=== PATIENT | male | born 1935 | race Caucasian/White ===

== ENCOUNTER 2019-06-04 07:06 | Inpatient (IN) ==
[2019-06-04] MEDS ORDERED: Sodium Chloride 0.9% 1,000 ML PRIMARY IV ONE (07:17)
[2019-06-04] MEDS ORDERED: methylPREDNISolone 125 MG/2 ML VIAL IVP ONE (07:17)
[2019-06-04 07:54] LABS: BASOPHILS # (AUTO) 0.03 10*3/UL; BASOPHILS % (AUTO) 0.2 % (0-1); EOSINOPHILS # (AUTO) 0.12 10*3/UL; EOSINOPHILS % (AUTO) 0.7 % (0-8); Hematocrit [HCT] 32.4 % (42.0-52.0); Hemoglobin [HGB] 10.1 g/dL (14.0-18.0); LYMPHOCYTES # (AUTO) 1.22 10*3/uL; MEAN CORPUSCULAR HGB CONC 31.2 g/dL (33-37); MEAN CORPUSCULAR VOLUME 88.3 FL (80-90); MEAN PLATELET VOLUME 8.3 FL (7.4-12.2); MONOCYTES # (AUTO) 0.88 10*3/UL (0.3-0.8); MONOCYTES % (AUTO) 5.1 % (5-15); NEUTROPHILS # (AUTO) 14.99 10*3/UL; NEUTROPHILS % (AUTO) 86.7 % (50-80); RED BLOOD COUNT 3.67 10^6/uL (4.70-6.10)
[2019-06-04 07:59] LABS: PLATELET MORPHOLOGY COMMENT NORMAL MORPHOLOGY (NORM); RBC MORPHOLOGY COMMENT NORMAL MORPHOLOGY (NORM); WBC MORPHOLOGY COMMENT NORMAL MORPHOLOGY (NORM)
[2019-06-04 08:06] LABS: BUN/CREATININE RATIO 18.33 (6-20); SERUM ALBUMIN 2.9 g/dL (3.5-4.8)
[2019-06-04] MEDS ORDERED: cefTRIAXone Inj 2 GM in Sodium Chloride 0.9% 100 ML IV ONE (08:20)
[2019-06-04 08:23] LABS: VENOUS PH 7.44 (7.32-7.42)
[2019-06-04] MEDS ORDERED: DICLOFENAC SODIUM TOPICAL PRN (11:30)
[2019-06-04] MEDS ORDERED: LIDOCAINE W/ SODIUM BICARB 0.5 ML SYR SUBD PRN (11:30)
[2019-06-04] MEDS ORDERED: LIDOCAINE HCL 2 % 10 ML JELLY URO-JECT TOPICAL PRN (11:32)
[2019-06-04] MEDS ORDERED: Influenza 19-20 Vaccine (6mo+) 60 MCG/0.5 ML SYRINGE IM ONE (12:19)
[2019-06-04] MEDS: IPRATROPIUM/ALBUTEROL SULFATE 3 ML NEB NEB PRN ×2 (13:14→19:14)
[2019-06-04] MEDS: methylPREDNISolone 40 MG/1 ML VIAL IVP SCH ×3 (13:54→23:40)
[2019-06-04] MEDS: Cefepime Inj 2 GM in Sodium Chloride 0.9% 100 ML IV SCH ×2 (13:54→19:18)
[2019-06-04] MEDS: Beta Carot W/Vit E,C,Min Tab 1 TAB TAB PO SCH (14:00)
[2019-06-04] MEDS: ASPIRIN 81 MG (BABY) CHEWABLE TABLET PO SCH (14:01)
[2019-06-04] MEDS: traMADol 50 MG TABLET PO SCH ×4 (14:01→23:46)
[2019-06-04] MEDS: ENOXAPARIN SODIUM 40 MG/0.4 ML SYRINGE SUBCUT SCH (14:02)
[2019-06-04] MEDS: FUROSEMIDE 10 MG/1 ML - 2 ML VIAL IVP SCH (14:02)
[2019-06-04] MEDS: AmLODIPine Tab 5 MG TABLET PO SCH (14:09)
[2019-06-04] MEDS: OMEPRAZOLE 20 MG CAPSULE PO SCH (14:09)
[2019-06-04] MEDS: LEVOTHYROXINE 75 MCG TABLET PO SCH (14:10)
[2019-06-04] MEDS ORDERED: Sodium Chloride 0.9% 100 ML IV ONE (19:08)
[2019-06-04] MEDS: FLUTICASONE/SALMETEROL 250/50 UD INHALER INH SCH (19:14)
[2019-06-04] MEDS: Zolpidem Tab 5 MG TAB PO SCH ×2 (19:19→23:45)
[2019-06-04] MEDS: ACETAMINOPHEN 500 MG TABLET PO PRN (19:21)
[2019-06-04] MEDS: MELATONIN 5 MG TABLET PO SCH ×2 (19:21→23:46)
[2019-06-05] MEDS: Cefepime Inj 2 GM in Sodium Chloride 0.9% 100 ML IV SCH (03:47)
[2019-06-05] MEDS: OMEPRAZOLE 20 MG CAPSULE PO SCH ×2 (03:52→09:25)
[2019-06-05] MEDS: LEVOTHYROXINE 75 MCG TABLET PO SCH ×2 (03:53→05:28)
[2019-06-05 05:36] LABS: BLOOD UREA NITROGEN 29 mg/dL (7-22); SERUM ALBUMIN 2.6 g/dL (3.5-4.8)
[2019-06-05] MEDS: methylPREDNISolone 40 MG/1 ML VIAL IVP SCH ×2 (05:39→17:09)
[2019-06-05] MEDS: ACETAMINOPHEN 500 MG TABLET PO PRN ×3 (05:43→19:48)
[2019-06-05] MEDS: traMADol 50 MG TABLET PO SCH ×6 (05:44→20:04)
[2019-06-05 06:26] LABS: BASOPHILS # (AUTO) 0.01 10*3/UL; BASOPHILS % (AUTO) 0.1 % (0-1); EOSINOPHILS # (AUTO) 0 10*3/UL; EOSINOPHILS % (AUTO) 0 % (0-8); Hematocrit [HCT] 32.2 % (42.0-52.0); LYMPHOCYTES # (AUTO) 0.48 10*3/uL; MEAN CORPUSCULAR HGB CONC 31.1 g/dL (33-37); MEAN CORPUSCULAR VOLUME 88.5 FL (80-90); MEAN PLATELET VOLUME 9.2 FL (7.4-12.2); MONOCYTES # (AUTO) 0.39 10*3/UL (0.3-0.8); MONOCYTES % (AUTO) 2.1 % (5-15); NEUTROPHILS # (AUTO) 17.52 10*3/UL; NEUTROPHILS % (AUTO) 94.8 % (50-80); RED BLOOD COUNT 3.64 10^6/uL (4.70-6.10)
[2019-06-05 06:27] LABS: PLATELET MORPHOLOGY COMMENT NORMAL MORPHOLOGY (NORM); RBC MORPHOLOGY COMMENT NORMAL MORPHOLOGY (NORM); WBC MORPHOLOGY COMMENT NORMAL MORPHOLOGY (NORM)
[2019-06-05] MEDS: IPRATROPIUM/ALBUTEROL SULFATE 3 ML NEB NEB PRN ×2 (06:31→11:49)
[2019-06-05] MEDS: FLUTICASONE/SALMETEROL 250/50 UD INHALER INH SCH ×3 (06:35→19:19)
[2019-06-05] MEDS: FUROSEMIDE 10 MG/1 ML - 2 ML VIAL IVP SCH (07:18)
[2019-06-05] MEDS: AmLODIPine Tab 5 MG TABLET PO SCH ×2 (07:18→11:08)
[2019-06-05] MEDS ORDERED: Cefepime Inj 2 GM in Sodium Chloride 0.9% 100 ML IV SCH (09:00)
[2019-06-05] MEDS ORDERED: Vancomycin-PHA to Dose IV PRN (09:00)
[2019-06-05] MEDS: ENOXAPARIN SODIUM 40 MG/0.4 ML SYRINGE SUBCUT SCH (09:22)
[2019-06-05] MEDS ORDERED: Influenza 19-20 Vaccine (6mo+) 60 MCG/0.5 ML SYRINGE IM ONE (09:22)
[2019-06-05] MEDS: Beta Carot W/Vit E,C,Min Tab 1 TAB TAB PO SCH (09:22)
[2019-06-05] MEDS: ASPIRIN 81 MG (BABY) CHEWABLE TABLET PO SCH (09:22)
[2019-06-05] MEDS: Ertapenem Inj 1 GM in Sodium Chloride 0.9% 100 ML IV SCH (10:15)
[2019-06-05] MEDS: HYDROCHLOROTHIAZIDE 12.5 MG CAPSULE PO SCH (11:15)
[2019-06-05] MEDS: MAGNESIUM 400 MG/5 ML - 30 ML (MILK OF MAGNESIA) PO PRN (19:42)
[2019-06-05] MEDS: MELATONIN 5 MG TABLET PO SCH ×2 (19:43→20:04)
[2019-06-05] MEDS: Zolpidem Tab 5 MG TAB PO SCH ×2 (19:43→20:03)
[2019-06-06] MEDS: OMEPRAZOLE 20 MG CAPSULE PO SCH ×2 (04:35→06:07)
[2019-06-06] MEDS: LEVOTHYROXINE 75 MCG TABLET PO SCH (04:36)
[2019-06-06 04:46] LABS: BASOPHILS # (AUTO) 0.01 10*3/UL; BASOPHILS % (AUTO) 0 % (0-1); EOSINOPHILS # (AUTO) 0 10*3/UL; EOSINOPHILS % (AUTO) 0 % (0-8); Hematocrit [HCT] 30.5 % (42.0-52.0); Hemoglobin [HGB] 9.5 g/dL (14.0-18.0); LYMPHOCYTES # (AUTO) 0.62 10*3/uL; MEAN CORPUSCULAR HGB CONC 31.1 g/dL (33-37); MEAN CORPUSCULAR VOLUME 89.2 FL (80-90); MEAN PLATELET VOLUME 8.6 FL (7.4-12.2); MONOCYTES # (AUTO) 0.84 10*3/UL (0.3-0.8); MONOCYTES % (AUTO) 4.1 % (5-15); NEUTROPHILS % (AUTO) 92.5 % (50-80); RED BLOOD COUNT 3.42 10^6/uL (4.70-6.10)
[2019-06-06 04:48] LABS: PLATELET MORPHOLOGY COMMENT NORMAL MORPHOLOGY (NORM); RBC MORPHOLOGY COMMENT NORMAL MORPHOLOGY (NORM); WBC MORPHOLOGY COMMENT NORMAL MORPHOLOGY (NORM)
[2019-06-06 05:08] LABS: BUN/CREATININE RATIO 31.66 (6-20)
[2019-06-06] MEDS: traMADol 50 MG TABLET PO SCH ×5 (06:05→19:51)
[2019-06-06] MEDS: ACETAMINOPHEN 500 MG TABLET PO PRN ×2 (06:06→13:52)
[2019-06-06] MEDS: methylPREDNISolone 40 MG/1 ML VIAL IVP SCH (06:06)
[2019-06-06] MEDS: HYDROCHLOROTHIAZIDE 12.5 MG CAPSULE PO SCH (07:00)
[2019-06-06] MEDS: FLUTICASONE/SALMETEROL 250/50 UD INHALER INH SCH ×2 (07:18→19:02)
[2019-06-06] MEDS: IPRATROPIUM/ALBUTEROL SULFATE 3 ML NEB NEB PRN (07:18)
[2019-06-06] MEDS: Ertapenem Inj 1 GM in Sodium Chloride 0.9% 100 ML IV SCH (08:20)
[2019-06-06] MEDS: ENOXAPARIN SODIUM 40 MG/0.4 ML SYRINGE SUBCUT SCH (08:20)
[2019-06-06] MEDS: ASPIRIN 81 MG (BABY) CHEWABLE TABLET PO SCH (08:21)
[2019-06-06] MEDS: Beta Carot W/Vit E,C,Min Tab 1 TAB TAB PO SCH (08:21)
[2019-06-06] MEDS: AmLODIPine Tab 5 MG TABLET PO SCH (08:21)
[2019-06-06] MEDS ORDERED: ACETAMINOPHEN 500 MG TABLET PO PRN (15:45)
[2019-06-06] MEDS ORDERED: MELATONIN 5 MG TABLET PO SCH (19:00)
[2019-06-06] MEDS: MAGNESIUM 400 MG/5 ML - 30 ML (MILK OF MAGNESIA) PO PRN (21:06)
[2019-06-06] MEDS: Zolpidem Tab 5 MG TAB PO SCH (21:06)
[2019-06-07] MEDS ORDERED: OMEPRAZOLE 20 MG CAPSULE PO SCH (05:00)
[2019-06-07] MEDS ORDERED: LEVOTHYROXINE 75 MCG TABLET PO SCH (05:00)
[2019-06-07 05:50] LABS: BASOPHILS # (AUTO) 0.01 10*3/UL; BASOPHILS % (AUTO) 0.1 % (0-1); EOSINOPHILS # (AUTO) 0.01 10*3/UL; EOSINOPHILS % (AUTO) 0.1 % (0-8); Hematocrit [HCT] 32.1 % (42.0-52.0); Hemoglobin [HGB] 9.9 g/dL (14.0-18.0); LYMPHOCYTES # (AUTO) 0.94 10*3/uL; MEAN CORPUSCULAR HGB CONC 30.8 g/dL (33-37); MEAN CORPUSCULAR VOLUME 89.2 FL (80-90); MEAN PLATELET VOLUME 8.5 FL (7.4-12.2); MONOCYTES # (AUTO) 0.93 10*3/UL (0.3-0.8); MONOCYTES % (AUTO) 7.7 % (5-15); NEUTROPHILS # (AUTO) 10.08 10*3/UL
[2019-06-07 05:53] LABS: PLATELET MORPHOLOGY COMMENT NORMAL MORPHOLOGY (NORM); RBC MORPHOLOGY COMMENT NORMAL MORPHOLOGY (NORM); WBC MORPHOLOGY COMMENT NORMAL MORPHOLOGY (NORM)
[2019-06-07 06:46] VITALS: BP 154/57; TEMP 97.6
[2019-06-07] MEDS: HYDROCHLOROTHIAZIDE 12.5 MG CAPSULE PO SCH (06:52)
[2019-06-07] MEDS: traMADol 50 MG TABLET PO SCH (06:52)
[2019-06-07] MEDS: IPRATROPIUM/ALBUTEROL SULFATE 3 ML NEB NEB PRN (06:58)
[2019-06-07] MEDS: FLUTICASONE/SALMETEROL 250/50 UD INHALER INH SCH (06:58)
[2019-06-07 06:59] VITALS: RESP 18
[2019-06-07] MEDS: AmLODIPine Tab 5 MG TABLET PO SCH (08:05)
[2019-06-07 08:53] VITALS: O2SAT 91
[2019-06-07] MEDS ORDERED: predniSONE Tab 20 MG TAB PO SCH (09:00)
[2019-06-07] MEDS ORDERED: predniSONE Tab 10 MG TAB PO SCH (09:00)
[2019-06-07] MEDS: ENOXAPARIN SODIUM 40 MG/0.4 ML SYRINGE SUBCUT SCH (09:26)
[2019-06-07] MEDS: Ertapenem Inj 1 GM in Sodium Chloride 0.9% 100 ML IV SCH (09:27)
[2019-06-07] MEDS: Beta Carot W/Vit E,C,Min Tab 1 TAB TAB PO SCH (09:27)
[2019-06-07] MEDS: ASPIRIN 81 MG (BABY) CHEWABLE TABLET PO SCH (09:28)
[2019-06-07] MEDS ORDERED: traMADol 50 MG TABLET PO SCH (13:00)
== END 2019-06-07 11:15 | DRG 194 ==
LOC: ER 07:06 → MED/SURG 11:21
PROVIDERS: ADMIT Internal Medicine; ATTEND Internal Medicine